=== PATIENT | male | born 1980 | race Hispanic/Latino ===

== ENCOUNTER 2022-06-05 10:14 | Emergency (ER) | payer SELFPAY ==
[2022-06-05] MEDS ORDERED: Ondansetron PF 4 MG/2 ML Vial ONE (11:40)
[2022-06-05] MEDS ORDERED: Morphine 4 MG/ML VIAL ONE (11:40)
[2022-06-05 11:48] LABS: #Basophils 0.1 thou/uL (0.0-0.2); #Eosinphils 0.2 thou/uL (0.0-0.7); #Lymphocytes 2.8 thou/uL (1.20-3.40); #Monocytes 0.4 thou/uL (0.11-0.59); #Neutrophils 3.3 thou/uL (1.40-6.50); %Basophils 1.7 % (0.0-1.0); %Eosinophils 2.3 % (0.0-10.0); %Lymphocytes 41.2 % (21.0-51.0); %Monocytes 5.2 % (0.0-10.0); %Neutrophils 49.5 % (42.0-75.0); Hemoglobin 16.7 g/dL (14.0-18.0); Mean Corpuscular HGB CONC 33.8 g/dL (32.0-36.0); Mean Corpuscular Volume 91.9 fL (78.0-98.0); Mean Platelet Volume 7.2 fL (7.4-10.4); Platelet Count 269 thou/uL (130-400); RBC Distribution Width 11.5 % (11.5-14.5); Red Blood Cell (RBC) Count 5.38 mill/uL (4.70-6.10); White Blood Cell (WBC) Count 6.7 thou/uL (4.8-10.8)
[2022-06-05 12:25] LABS: ALT (SGPT) 36 U/L (8-55); AST (SGOT) 23 U/L (5-34); Albumin 4.3 g/dL (3.5-5.0); Alkaline Phosphatase 101 U/L (40-110); Anion Gap 17 mmol/L (10-20); BUN (Urea Nitrogen) 22 mg/dL (8.9-20.6); Bilirubin, Total 0.5 mg/dL (0.2-1.2); Calc. Creatinine Clearance 0 mL/min (70-130); Calcium 9.2 mg/dL (7.8-10.44); Carbon Dioxide 19 mmol/L (22-29); Chloride 105 mmol/L (98-107); Estimated GFR 116; Globulin 3.5 g/dL (2.4-3.5); Glucose 98 mg/dL (70-105); Potassium 4.2 mmol/L (3.5-5.1); Protein, Total 7.8 g/dL (6.0-8.3); Sodium 137 mmol/L (136-145)
== END 2022-06-05 13:43 | disposition home or self-care (01) ==
LOC: ERS 10:14
DX: S92.062A Displaced intraarticular fracture of left calcaneus, initial encounter for closed fracture (principal); X58.XXXA Exposure to other specified factors, initial encounter
CPT/HCPCS: 29515; 36415; 71045; 80053; 85025; 86850; 86900; 86901; 93005; 96374; 96375; J2270; J2405

== ENCOUNTER 2022-07-04 09:03 | Emergency (ER) | payer SELFPAY | END 2022-07-04 10:47 | disposition home or self-care (01) | LOC: ERS 09:03 | DX: S92.062D Displaced intraarticular fracture of left calcaneus, subsequent encounter for fracture with routine healing (principal) ==

== ENCOUNTER 2022-08-13 04:26 | Emergency (ER) | payer SELFPAY | END 2022-08-13 08:05 | LOC: ERS 04:26 | DX: Z02.89 Encounter for other administrative examinations (principal) | CPT/HCPCS: 99282 ==